=== PATIENT | female | born 1985 | race Caucasian/White ===

== ENCOUNTER 2023-01-24 13:37 | Emergency (ER) | payer OTHER ==
[2023-01-24 13:45] VITALS: BP 121/83; PULSE 83; RESP 18; TEMP 97.6; BMI 22.3
== END 2023-01-24 15:11 | disposition home or self-care (01) ==
LOC: JERFT 13:37 → JER 13:37 → JERFT 15:11
DX: M25.551 Pain in right hip (principal); M25.552 Pain in left hip; N90.89 Other specified noninflammatory disorders of vulva and perineum; R59.0 Localized enlarged lymph nodes; N76.89 Other specified inflammation of vagina and vulva
CPT/HCPCS: 99283-25